=== PATIENT | female | born 2000 | race Hispanic/Latino ===

== ENCOUNTER 2020-02-25 19:10 | Emergency (ER) | payer OTHER ==
[2020-02-25] MEDS ORDERED: diphenhydrAMINE 50 MG/ML VIAL ONE (19:37)
[2020-02-25] MEDS ORDERED: Ketorolac Tromethamine 30 MG/ML VIAL ONE (19:37)
[2020-02-25] MEDS ORDERED: Metoclopramide HCl 10 MG/2 ML VIAL ONE (19:37)
[2020-02-25] MEDS ORDERED: Ondansetron ODT 4 MG TAB ONE (19:38)
--- NOTE | 2020-02-25 20:13 | CT ---
CT Brain WO Con: 02/25/2020 7:57 PM CLINICAL HISTORY: Fall with history of hitting head feeling dizzy. IMAGING TECHNIQUE: Multiple CT images were obtained of the brain without IV contrast. COMPARISON: None. FINDINGS: BRAIN: Evidence of acute infarct: None. Evidence of chronic ischemic change:None. Evidence of intracranial hemorrhage: None. Evidence of midline shift: Third ventricle and septum pellucidum are midline. Ventricles: Normal. No hydrocephalus. SKULL: Intact. VISUALIZED PARANASAL SINUSES: Clear. MASTOID AIR CELLS: Clear. EXTRACRANIAL SOFT TISSUES: Normal. IMPRESSION: No acute intracranial abnormality.
== END 2020-02-25 21:12 | disposition home or self-care (01) ==
LOC: ERS 19:10
DX: S06.0X0A Concussion without loss of consciousness, initial encounter (principal); W01.10XA Fall on same level from slipping, tripping and stumbling with subsequent striking against unspecified object, initial encounter; Y99.0 Civilian activity done for income or pay
CPT/HCPCS: 70450; 96372; J1200; J1885; J2765; Q0162